=== PATIENT | male | born 1955 | race Two or more races ===

== ENCOUNTER 2018-02-15 15:02 | Emergency (ER) | payer MEDICARE, MEDICAID ==
[~2018-02-15] VITALS: Ht 167.6 cm; Wt 114.8 kg
[2018-02-15 15:07] VITALS: BP 177/101
[2018-02-15 15:28] LABS: BASOPHILS # (AUTO) 0.04 x10^3/uL (0-0.1); BASOPHILS % (AUTO) 1 % (0-1); EOSINOPHILS # (AUTO) 0.08 x10^3/uL (0-0.4); EOSINOPHILS % (AUTO) 1 % (1-7); LYMPHOCYTES # (AUTO) 1.93 x10^3/uL (1-3.4); LYMPHOCYTES % (AUTO) 25 % (22-44); MD NO; MEAN CORPUSCULAR HEMOGLOBIN 28.6 pg (27.5-34.5); MEAN CORPUSCULAR HGB CONC 32.4 g/dL (33.2-36.2); MEAN CORPUSCULAR VOLUME 88.4 fL (81-97); MEAN PLATELET VOLUME 8.3 fL (7.4-10.4); MONOCYTES # (AUTO) 0.58 x10^3/uL (0.2-0.8); MONOCYTES % (AUTO) 7 % (2-9); NEUTROPHILS # (AUTO) 5.23 x10^3/uL (1.8-6.8); NEUTROPHILS % (AUTO) 67 % (42-75); PLATELET COUNT 225 x10^3/uL (130-400); RED CELL DISTRIBUTION WIDTH 14.8 % (9.4-14.8)
[2018-02-15] MEDS ORDERED: ONDANSETRON 2MG/ML, 2ML ONE (15:29)
[2018-02-15] MEDS ORDERED: ACETAMINOPHEN 500 MG TABLET ONE (15:30)
[2018-02-15] MEDS ORDERED: ONDANSETRON 2MG/ML, 2ML IVPush ONE (15:30)
[2018-02-15] MEDS ORDERED: ACETAMINOPHEN 500 MG TABLET PO ONE (15:30)
[2018-02-15] MEDS ORDERED: SODIUM CHLORIDE FLUSH 10ML SYR IVF ONE (15:30)
[2018-02-15 15:40] LABS: ALANINE AMINOTRANSFERASE 28 U/L (12-78); ALBUMIN 3.3 g/dL (3.4-5.0); ANION GAP 7 mmol/L (5-15); CALCIUM 9.1 mg/dL (8.5-10.1); CHLORIDE 106 mmol/L (98-107); CREATININE 1.66 mg/dL (0.7-1.3)
[2018-02-15 15:42] LABS: ALKALINE PHOSPHATASE 95 U/L (45-117); BILIRUBIN,TOTAL 0.6 mg/dL (0.2-1.0); TOTAL PROTEIN 7.6 g/dL (6.4-8.2)
[2018-02-15 15:52] LABS: INTERNATIONAL NORMALIZED RATIO 0.99 (0.93-1.1); PROTHROMBIN TIME 10.3 Seconds (9.6-11.5)
[2018-02-15] MEDS ORDERED: CHOL20002 PO (15:53)
[2018-02-15] MEDS ORDERED: NAPR-868 PO (15:53)
[2018-02-15] MEDS ORDERED: THIA100T27 PO (15:53)
[2018-02-15] MEDS ORDERED: FOSI40TA2 PO (15:53)
[2018-02-15] MEDS ORDERED: ASPI-496 PO (15:53)
[2018-02-15] MEDS ORDERED: ACAR50TA11 PO (15:53)
[2018-02-15] MEDS ORDERED: GLIP10TA13 PO (15:53)
[2018-02-15] MEDS ORDERED: ESOM40CA PO (15:53)
[2018-02-15] MEDS ORDERED: FURO20TA3 PO (15:53)
[2018-02-15] MEDS ORDERED: CALC-666 PO (15:53)
[2018-02-15] MEDS ORDERED: METF500T5 PO (15:53)
[2018-02-15] MEDS ORDERED: ATOR20TA9 PO (15:53)
[2018-02-15] MEDS ORDERED: CETI10TA18 PO (15:53)
[2018-02-15] MEDS ORDERED: METO25TA35 PO (15:53)
[2018-02-15] MEDS ORDERED: DIAZ5TAB4 PO (15:53)
[2018-02-15] MEDS ORDERED: HYDR-3240 PO (15:53)
[2018-02-15] MEDS ORDERED: IBUP-1223 PO (15:53)
[2018-02-15 16:34] LABS: MICROSCOPIC AUTO
[2018-02-15 16:38] LABS: CULTURE INDICATED? NO
== END 2018-02-15 17:54 | disposition home or self-care (01) ==
LOC: ED 15:47
DX: K59.00 Constipation, unspecified (principal); I10 Essential (primary) hypertension; E11.9 Type 2 diabetes mellitus without complications; Z85.46 Personal history of malignant neoplasm of prostate
CPT/HCPCS: 36415; 74176; 80053; 81001; 83690; 85025; 85610; 85730; 99285